=== PATIENT | female | born 1955 | race Caucasian/White ===

== ENCOUNTER 2016-12-04 09:19 | Inpatient (IN) | payer OTHER ==
[~2016-12-04] VITALS: Ht 157.5 cm; Wt 90.3 kg
[~2016-12-04 09:19] MED LIST: ADV250 IH; ALBU8.5H IH; HYDR-309 PO; INSLAN SQ; LACT30L PO; LEVO88TA4 PO; MECL-111 PO; METH10 PO
[2016-12-04 09:36] LABS: GLUCOSE,POINT OF CARE 141 MG/DL (70-110)
[2016-12-04 10:18] LABS: HEMOGLOBIN 10.6 g/dL (12.0-16.0); MEAN CORPUSCULAR HEMOGLOBIN 32.4 pg (26.0-34.0); MEAN CORPUSCULAR VOLUME 95 fL (80-100); PLATELET COUNT (AUTO) 21 K/uL (150-450); RED BLOOD CELL COUNT(AUTO) 3.26 MIL/uL (4.00-5.20); RED CELL DISTRIBUTION WIDTH 14.5 % (11.5-14.5); WHITE BLOOD COUNT (AUTO) 1.7 K/uL (4.5-11.0)
[2016-12-04 10:32] LABS: ANION GAP 5 mmol/L (8-16); CARBON DIOXIDE 29 mmol/L (22-29); CHLORIDE 106 mmol/L (98-107); CREATININE 0.66 mg/dL (0.60-1.30); GLOMERULAR FILTR. RATE CALC > 60 mL/min (>60); POTASSIUM 3.6 mmol/L (3.5-5.1); SODIUM SERUM 140 mmol/L (136-145); UREA NITROGEN, BLOOD 9 mg/dL (7-18)
[2016-12-04 10:34] LABS: APPEARANCE,URINE CLEAR (CLEAR); GLUCOSE, URINE (UA) NEGATIVE (NEGATIVE); KETONES,URINE NEGATIVE (NEGATIVE); LEUKOCYTE ESTERASE ,URINE NEGATIVE (NEGATIVE); OCCULT BLOOD,URINE NEGATIVE (NEGATIVE); PH,URINE 5.5 (5.0-8.0); PROTEIN,URINE NEGATIVE (NEGATIVE)
[2016-12-04 10:38] LABS: ALANINE AMINOTRANSFERASE 37 U/L (12-78); ALBUMIN 2.9 g/dL (3.4-5.0); ASPARTATE AMINOTRANSFERASE 50 U/L (15-37); BILIRUBIN,TOTAL 1.4 mg/dL (0.1-1.0)
[2016-12-04 10:39] LABS: ADD UA MICROSCOPIC NO
[2016-12-04 10:51] LABS: BAND NEUTROPHILS % (MANUAL) 7 % (1-5); LYMPHOCYTES % (MANUAL) 22 % (22-44); TOTAL CELLS COUNTED 100
[2016-12-04 10:52] LABS: RBC MORPHOLOGY COMMENT NORMAL RBC MORPH
[2016-12-04 11:02] LABS: BASOPHILS % (AUTO) 0.6 % (0.0-2.0); EOSINOPHILS % (AUTO) 2.5 % (1.0-6.0); HEMATOCRIT 30.6 % (36-46); HEMOGLOBIN 10.5 g/dL (12.0-16.0); LYMPHOCYTES # (AUTO) 0.4 K/uL (1.0-4.8); LYMPHOCYTES % (AUTO) 22.7 % (22.0-44.0); MEAN CORPUSCULAR HEMOGLOBIN 32.7 pg (26.0-34.0); MEAN CORPUSCULAR HGB CONC 34.2 G/dL (31.0-37.0); MEAN CORPUSCULAR VOLUME 96 fL (80-100); MONOCYTES # (AUTO) 0.2 K/uL (0.1-1.0); NEUTROPHILS % (AUTO) 61.2 % (40.0-70.0); RED BLOOD CELL COUNT(AUTO) 3.21 MIL/uL (4.00-5.20); RED CELL DISTRIBUTION WIDTH 14.4 % (11.5-14.5); WHITE BLOOD COUNT (AUTO) 1.6 K/uL (4.5-11.0)
[2016-12-04 11:06] LABS: PLATELET COUNT (AUTO) 19 K/uL (150-450)
[2016-12-04 11:16] LABS: RBC MORPHOLOGY COMMENT NORMAL RBC MORPH
[2016-12-04 11:42] LABS: INR 1.3 (0.9-1.1); PROTHROMBIN TIME 13.4 SEC (9.4-11.6)
[2016-12-04] MEDS ORDERED: PANTOPRAZOLE SODIUM 40 MG/VIAL IVP ONE (14:30)
[2016-12-04] MEDS ORDERED: 0.9% SODIUM CHLORIDE 10 ML SYRINGE IVP PRN (14:45)
[2016-12-04] MEDS ORDERED: ONDANSETRON HCL 4 MG/2 ML VIAL IVP PRN ×2 (14:45→16:00)
[2016-12-04] MEDS: ACETAMINOPHEN 325 MG TABLET PO PRN (15:02)
[2016-12-04] MEDS ORDERED: ALBUTEROL SULFATE HFA 90 MCG/PUFF 8 GM INHALER IH PRN (16:00)
[2016-12-04] MEDS ORDERED: MAGNESIUM HYDROXIDE SUSPENSION 30 ML UDCUP PO PRN (16:00)
[2016-12-04] MEDS ORDERED: ACETAMINOPHEN 325 MG TABLET PO PRN (16:00)
[2016-12-04] MEDS ORDERED: MECLIZINE HCL 25 MG TABLET PO PRN (16:00)
[2016-12-04] MEDS ORDERED: BISACODYL 10 MG RECTAL RECTAL SUPPOSITORY PR PRN (16:00)
[2016-12-04 16:28] VITALS: BP 118/50
[2016-12-04] MEDS ORDERED: SODIUM CHLORIDE 0.9% 500 ML IV ONE (16:43)
[2016-12-04 17:45] VITALS: BP 132/60
[2016-12-04 18:00] VITALS: BP 105/57
[2016-12-04 18:30] VITALS: BP 99/58
[2016-12-04 19:48] VITALS: BP 121/61
[2016-12-04] MEDS: DOCUSATE SODIUM 100 MG CAPSULE PO SCH (20:15)
[2016-12-04] MEDS: LACTULOSE 20 GM/30 ML SOLUTION UDCUP PO SCH (20:15)
[2016-12-04] MEDS: HYDROCODONE/ACETAMINOPHEN 5-325 MG TABLET PO PRN (20:16)
[2016-12-04] MEDS: FLUTICASONE/SALMETEROL 250 MCG-50 MCG/INH DISKUS INHALER [28] IH SCH (20:41)
[2016-12-04 22:11] LABS: GLUCOSE,POINT OF CARE 68 MG/DL (70-110)
[2016-12-04] MEDS: DEXTROSE 5%-0.45% SODIUM CHL 1,000 ML IV SCH (22:33)
[2016-12-05] VITALS (15 sets, daily range): BP systolic 101–133; BP diastolic 53–91
[2016-12-05] MEDS ORDERED: SODIUM CHLORIDE 0.9% 250 ML IV ONE (02:58)
[2016-12-05] MEDS: ACETAMINOPHEN 325 MG TABLET PO PRN (03:49)
[2016-12-05] MEDS: LEVOTHYROXINE SODIUM 88 MCG TABLET PO SCH (06:12)
[2016-12-05 06:46] LABS: GLUCOSE,POINT OF CARE 78 MG/DL (70-110)
[2016-12-05] MEDS ORDERED: GADOBUTROL 1 MMOL/ML 10 ML VIAL IVP ONE (07:51)
[2016-12-05] MEDS: DOCUSATE SODIUM 100 MG CAPSULE PO SCH ×2 (09:00→20:33)
[2016-12-05] MEDS: LACTULOSE 20 GM/30 ML SOLUTION UDCUP PO SCH ×2 (09:00→20:33)
[2016-12-05] MEDS ORDERED: DEXTROSE 50%-WATER 25 GM/50 ML SYRINGE IVP PRN (09:15)
[2016-12-05 09:33] LABS: BASOPHILS % (AUTO) 0.2 % (0.0-2.0); EOSINOPHILS % (AUTO) 1.9 % (1.0-6.0); HEMATOCRIT 29.3 % (36-46); HEMOGLOBIN 10.1 g/dL (12.0-16.0); LYMPHOCYTES # (AUTO) 0.3 K/uL (1.0-4.8); LYMPHOCYTES % (AUTO) 14.1 % (22.0-44.0); MEAN CORPUSCULAR HEMOGLOBIN 32.3 pg (26.0-34.0); MEAN CORPUSCULAR HGB CONC 34.3 G/dL (31.0-37.0); MEAN CORPUSCULAR VOLUME 94 fL (80-100); MONOCYTES # (AUTO) 0.2 K/uL (0.1-1.0); NEUTROPHILS # (AUTO) 1.3 K/uL (1.8-7.7); NEUTROPHILS % (AUTO) 70.8 % (40.0-70.0); PLATELET COUNT (AUTO) 26 K/uL (150-450); RED BLOOD CELL COUNT(AUTO) 3.11 MIL/uL (4.00-5.20); RED CELL DISTRIBUTION WIDTH 14.6 % (11.5-14.5); WHITE BLOOD COUNT (AUTO) 1.8 K/uL (4.5-11.0)
[2016-12-05] MEDS: FLUTICASONE/SALMETEROL 250 MCG-50 MCG/INH DISKUS INHALER [28] IH SCH ×2 (09:40→20:32)
[2016-12-05] MEDS: PANTOPRAZOLE SODIUM 40 MG DR TABLET PO SCH (09:40)
[2016-12-05] MEDS: METHADONE HCL 10 MG TABLET PO SCH (09:42)
[2016-12-05 09:45] LABS: INR 1.3 (0.9-1.1); PROTHROMBIN TIME 13.6 SEC (9.4-11.6)
[2016-12-05 09:47] LABS: ANION GAP 2 mmol/L (8-16); BILIRUBIN,TOTAL 1.5 mg/dL (0.1-1.0); CALCIUM, TOTAL 7.5 mg/dL (8.8-10.5); CARBON DIOXIDE 32 mmol/L (22-29); CHLORIDE 104 mmol/L (98-107); CREATININE 0.67 mg/dL (0.60-1.30); GLOMERULAR FILTR. RATE CALC > 60 mL/min (>60); POTASSIUM 3.5 mmol/L (3.5-5.1); SODIUM SERUM 138 mmol/L (136-145); UREA NITROGEN, BLOOD 9 mg/dL (7-18)
[2016-12-05 09:48] LABS: ALANINE AMINOTRANSFERASE 34 U/L (12-78); ALBUMIN 2.8 g/dL (3.4-5.0); ASPARTATE AMINOTRANSFERASE 48 U/L (15-37); TOTAL PROTEIN, SERUM 6.6 g/dL (6.4-8.2)
[2016-12-05 09:49] LABS: RBC MORPHOLOGY COMMENT ABNORMAL RBC MORPH
[2016-12-05] MEDS: INSULIN ASPART 100 UNITS/ML SQ PRN ×2 (12:08→18:46)
[2016-12-05 12:11] LABS: GLUCOSE,POINT OF CARE 152 MG/DL (70-110)
[2016-12-05] MEDS: DEXTROSE 5%-0.45% SODIUM CHL 1,000 ML IV SCH ×2 (12:11→23:47)
[2016-12-05] MEDS: HYDROCODONE/ACETAMINOPHEN 5-325 MG TABLET PO PRN ×2 (13:16→18:47)
[2016-12-05 17:35] LABS: GLUCOSE,POINT OF CARE 142 MG/DL (70-110)
[2016-12-05] MEDS: MORPHINE SULFATE 2 MG/ML SYRINGE IVP PRN (20:31)
[2016-12-05] MEDS: ZOLPIDEM TARTRATE 5 MG TABLET PO PRN (20:32)
[2016-12-06] VITALS (7 sets, daily range): BP systolic 106–150; BP diastolic 58–91
[2016-12-06 02:10] LABS: GLUCOSE,POINT OF CARE 131 MG/DL (70-110)
[2016-12-06] MEDS: MORPHINE SULFATE 2 MG/ML SYRINGE IVP PRN (04:44)
[2016-12-06] MEDS: LEVOTHYROXINE SODIUM 88 MCG TABLET PO SCH (05:45)
[2016-12-06 07:01] LABS: GLUCOSE,POINT OF CARE 130 MG/DL (70-110)
[2016-12-06] MEDS: HYDROCODONE/ACETAMINOPHEN 5-325 MG TABLET PO PRN ×3 (08:46→23:43)
[2016-12-06] MEDS: DOCUSATE SODIUM 100 MG CAPSULE PO SCH ×2 (09:00→19:52)
[2016-12-06] MEDS: PANTOPRAZOLE SODIUM 40 MG DR TABLET PO SCH (09:17)
[2016-12-06] MEDS: FLUTICASONE/SALMETEROL 250 MCG-50 MCG/INH DISKUS INHALER [28] IH SCH ×2 (09:18→19:52)
[2016-12-06] MEDS: METHADONE HCL 10 MG TABLET PO SCH (09:18)
[2016-12-06] MEDS: LACTULOSE 20 GM/30 ML SOLUTION UDCUP PO SCH ×2 (09:20→19:52)
[2016-12-06] MEDS: DEXTROSE 5%-0.45% SODIUM CHL 1,000 ML IV SCH ×2 (11:08→19:53)
[2016-12-06 11:40] LABS: GLUCOSE,POINT OF CARE 132 MG/DL (70-110)
[2016-12-06] MEDS: INSULIN ASPART 100 UNITS/ML SQ PRN ×2 (11:43→16:45)
[2016-12-06 19:35] LABS: GLUCOSE,POINT OF CARE 129 MG/DL (70-110)
[2016-12-06 20:11] LABS: GLUCOSE COMMENT 1 Received Meds; GLUCOSE,POINT OF CARE 128 MG/DL (70-110)
[2016-12-06] MEDS: ZOLPIDEM TARTRATE 5 MG TABLET PO PRN (23:43)
[2016-12-07 04:00] VITALS: BP 115/65
[2016-12-07] MEDS: LEVOTHYROXINE SODIUM 88 MCG TABLET PO SCH (05:33)
[2016-12-07 05:46] LABS: GLUCOSE,POINT OF CARE 110 MG/DL (70-110)
[2016-12-07 08:00] VITALS: BP 141/84
[2016-12-07] MEDS: METHADONE HCL 10 MG TABLET PO SCH (08:21)
[2016-12-07] MEDS: LACTULOSE 20 GM/30 ML SOLUTION UDCUP PO SCH (08:21)
[2016-12-07] MEDS: PANTOPRAZOLE SODIUM 40 MG DR TABLET PO SCH (08:22)
[2016-12-07] MEDS: DOCUSATE SODIUM 100 MG CAPSULE PO SCH (08:22)
[2016-12-07] MEDS: FLUTICASONE/SALMETEROL 250 MCG-50 MCG/INH DISKUS INHALER [28] IH SCH (08:22)
[2016-12-07 11:13] VITALS: BP 135/74
[2016-12-07] MEDS: HYDROCODONE/ACETAMINOPHEN 5-325 MG TABLET PO PRN (11:36)
[2016-12-07] MEDS: INSULIN ASPART 100 UNITS/ML SQ PRN (11:42)
[2016-12-07 14:36] LABS: GLUCOSE,POINT OF CARE 114 MG/DL (70-110)
== END 2016-12-07 12:32 | disposition home or self-care (01) ==
LOC: EMS 09:21 → 6N 14:39
PROVIDERS: ADMIT Internal Medicine; ATTEND Internal Medicine
PROC: 30233R1 Transfusion of Nonautologous Platelets into Peripheral Vein, Percutaneous Approach (ICD-10-PCS; principal; 2016-12-04)
DX: K80.20 Calculus of gallbladder without cholecystitis without obstruction (principal); E43 Unspecified severe protein-calorie malnutrition; D61.818 Other pancytopenia; K74.60 Unspecified cirrhosis of liver; F11.20 Opioid dependence, uncomplicated; R16.1 Splenomegaly, not elsewhere classified; K86.1 Other chronic pancreatitis; B19.20 Unspecified viral hepatitis C without hepatic coma; E11.9 Type 2 diabetes mellitus without complications; E03.9 Hypothyroidism, unspecified; F32.9 Major depressive disorder, single episode, unspecified; F17.210 Nicotine dependence, cigarettes, uncomplicated; F20.9 Schizophrenia, unspecified; F41.9 Anxiety disorder, unspecified; G89.29 Other chronic pain; M19.90 Unspecified osteoarthritis, unspecified site; I10 Essential (primary) hypertension; J45.909 Unspecified asthma, uncomplicated; K21.9 Gastro-esophageal reflux disease without esophagitis; Z87.11 Personal history of peptic ulcer disease; Z79.899 Other long term (current) drug therapy; Z98.890 Other specified postprocedural states; Z88.6 Allergy status to analgesic agent; Z88.8 Allergy status to other drugs, medicaments and biological substances; Z68.36 Body mass index [BMI] 36.0-36.9, adult
CPT/HCPCS: 74183; 76700; 76856; 82962; 86850; 86900; 86901; 96374; 96375; 99285; A9585; C9113; J2270; J2405; J3535; J7040; J7050; P9035

== ENCOUNTER 2017-03-19 12:10 | Emergency (ER) | payer OTHER ==
[~2017-03-19] VITALS: Ht 157.5 cm; Wt 86.4 kg
[2017-03-19 12:27] LABS: GLUCOSE,POINT OF CARE 137 MG/DL (70-110)
[2017-03-19] MEDS ORDERED: HYDROCODONE/ACETAMINOPHEN 10-325 MG TABLET PO ONE (13:00)
[2017-03-19 14:52] VITALS: BP 122/83
== END 2017-03-19 15:55 | disposition home or self-care (01) ==
LOC: EMS 12:11
DX: S80.01XA Contusion of right knee, initial encounter (principal); E11.9 Type 2 diabetes mellitus without complications; I10 Essential (primary) hypertension; E03.9 Hypothyroidism, unspecified; K21.9 Gastro-esophageal reflux disease without esophagitis; J45.909 Unspecified asthma, uncomplicated; Z88.5 Allergy status to narcotic agent; Z88.6 Allergy status to analgesic agent; Z79.4 Long term (current) use of insulin; W01.0XXA Fall on same level from slipping, tripping and stumbling without subsequent striking against object, initial encounter; Y93.89 Activity, other specified; Y92.89 Other specified places as the place of occurrence of the external cause; Y99.8 Other external cause status
CPT/HCPCS: 82962; 99284

== ENCOUNTER 2017-04-24 17:06 | Emergency (ER) | payer OTHER ==
[~2017-04-24] VITALS: Ht 162.6 cm; Wt 90.9 kg
[2017-04-24] MEDS ORDERED: GABA-531 PO (17:43)
[2017-04-24 19:00] LABS: BASOPHILS % (AUTO) 0.4 % (0.0-2.0); EOSINOPHILS % (AUTO) 2.3 % (1.0-6.0); HEMATOCRIT 31.8 % (36-46); HEMOGLOBIN 10.8 g/dL (12.0-16.0); LYMPHOCYTES # (AUTO) 0.4 K/uL (1.0-4.8); LYMPHOCYTES % (AUTO) 17.9 % (22.0-44.0); MEAN CORPUSCULAR VOLUME 94 fL (80-100); MONOCYTES # (AUTO) 0.2 K/uL (0.1-1.0); MONOCYTES % (AUTO) 11.8 % (2.0-9.0); NEUTROPHILS # (AUTO) 1.4 K/uL (1.8-7.7); NEUTROPHILS % (AUTO) 67.6 % (40.0-70.0); RED BLOOD CELL COUNT(AUTO) 3.39 MIL/uL (4.00-5.20); RED CELL DISTRIBUTION WIDTH 15.6 % (11.5-14.5)
[2017-04-24 19:01] LABS: ANION GAP 5 mmol/L (8-16); CALCIUM, TOTAL 8.1 mg/dL (8.8-10.5); CARBON DIOXIDE 30 mmol/L (22-29); CHLORIDE 106 mmol/L (98-107); CREATININE 0.62 mg/dL (0.60-1.30); GLOMERULAR FILTR. RATE CALC > 60 mL/min (>60); POTASSIUM 3.6 mmol/L (3.5-5.1); SODIUM SERUM 141 mmol/L (136-145); UREA NITROGEN, BLOOD 6 mg/dL (7-18)
[2017-04-24 19:07] LABS: ALANINE AMINOTRANSFERASE 34 U/L (12-78); ALBUMIN 2.9 g/dL (3.4-5.0); ASPARTATE AMINOTRANSFERASE 40 U/L (15-37); BILIRUBIN,TOTAL 1.2 mg/dL (0.1-1.0); TOTAL PROTEIN, SERUM 6.9 g/dL (6.4-8.2)
[2017-04-24 19:08] LABS: PLATELET COUNT (AUTO) 18 K/uL (150-450)
[2017-04-24 19:30] LABS: B-TYPE NATRIURETIC PEPTIDE 28 pg/mL (0-100)
[2017-04-24] MEDS: IPRATROPIUM BROMIDE 0.5 MG/2.5 ML NEB SOLUTION NEB ONE (19:40)
[2017-04-24] MEDS: ALBUTEROL SULFATE 2.5 MG/0.5 ML NEB SOLUTION NEB ONE (19:40)
[2017-04-24 19:44] LABS: APPEARANCE,URINE TURBID (CLEAR); GLUCOSE, URINE (UA) 250 mg/dL (NEGATIVE); KETONES,URINE NEGATIVE (NEGATIVE); LEUKOCYTE ESTERASE ,URINE TRACE (NEGATIVE); OCCULT BLOOD,URINE NEGATIVE (NEGATIVE); PH,URINE 6.5 (5.0-8.0); PROTEIN,URINE NEGATIVE (NEGATIVE)
[2017-04-24 19:48] LABS: ADD UA MICROSCOPIC YES
[2017-04-24 19:49] LABS: RBC,URINE 0-2 /HPF (0-2); SQUAMOUS EPITHELIAL CELL,UR Few /LPF (None Seen)
[2017-04-24 21:39] VITALS: BP 126/68
== END 2017-04-24 22:04 | disposition home or self-care (01) ==
LOC: EMS 17:08
DX: S89.91XA Unspecified injury of right lower leg, initial encounter (principal); D69.6 Thrombocytopenia, unspecified; J45.909 Unspecified asthma, uncomplicated; I10 Essential (primary) hypertension; E11.9 Type 2 diabetes mellitus without complications; K21.9 Gastro-esophageal reflux disease without esophagitis; E03.9 Hypothyroidism, unspecified; Z79.4 Long term (current) use of insulin; Z88.6 Allergy status to analgesic agent; Z88.8 Allergy status to other drugs, medicaments and biological substances; W01.0XXA Fall on same level from slipping, tripping and stumbling without subsequent striking against object, initial encounter; Y93.89 Activity, other specified; Y92.89 Other specified places as the place of occurrence of the external cause; Y99.8 Other external cause status
CPT/HCPCS: 36415; 71010; 73502; 73564; 73610; 80053; 81001; 82962; 83880; 84484; 85025; 85651; 86140; 87077; 87086; 93005; 94640; 99285; J7613